=== PATIENT | female | born 1995 | race Two or more races ===

== ENCOUNTER 2019-06-17 00:35 | Emergency (ER) | payer MEDICAID ==
[~2019-06-17] VITALS: Ht 170.2 cm; Wt 63.5 kg
[2019-06-17 01:16] LABS: Basophils # (auto) 0.3 uL; Basophils % (auto) 2.3 % (0.0-2.0); Eosinophils # (auto) 0.1 uL; Hemoglobin 13.8 g/dL (12.2-16.2); Lymphocytes # (auto) 1.5 uL; Lymphocytes % (auto) 12.8 % (10.0-50.0); Mean Corpuscular Hemoglobin 30.9 pg (28.0-32.0); Mean Corpuscular Hgb Conc. 34.6 g/dL (32.0-36.0); Mean Corpuscular Volume 89.4 fL (80.0-100.0); Monocytes # (auto) 0.3 uL; Neutrophils # (auto) 9.2 uL; Neutrophils % (auto) 80.9 % (37.0-80.0); Platelet Count (auto) 333 10^3/uL (140-450); Red Blood Cells 4.47 10^6/uL (4.0-5.20); Red Cell Distribution Width 13.2 % (11.8-14.3); White Blood Cell 11.4 10^3/uL (4.4-10.8)
[2019-06-17 01:32] LABS: BUN/Creatinine Ratio 10.2; Calcium 8.8 mg/dL (8.5-10.1)
[2019-06-17 01:35] LABS: Bilirubin, Total 0.2 mg/dL (0.2-1.0)
[2019-06-17] MEDS ORDERED: SODIUM CHLORIDE 0.9% 3,000 ML IV ONE (05:15)
[2019-06-17] MEDS ORDERED: LORazepam 2MG/ML-1ML VIAL IV ONE (06:15)
[2019-06-17 07:32] VITALS: BP 104/59
== END 2019-06-17 08:00 | disposition home or self-care (01) ==
LOC: EDBD 00:35 → ER 00:41
DX: F10.129 Alcohol abuse with intoxication, unspecified (principal); R56.9 Unspecified convulsions; R51 Headache; Y90.7 Blood alcohol level of 200-239 mg/100 ml
CPT/HCPCS: 36415; 70450; 80053; 80320; 85025; 99284; J7030